=== PATIENT | female | born 1990 | race African-American/Black ===

== ENCOUNTER 2019-01-19 19:18 | Emergency (ER) | payer MEDICAID ==
[~2019-01-19] VITALS: Ht 149.9 cm; Wt 42.3 kg
[2019-01-19 20:42] VITALS: BP 94/60
== END 2019-01-19 21:45 | disposition home or self-care (01) ==
LOC: EMS 19:19
DX: S63.682A Other sprain of left thumb, initial encounter (principal); F41.9 Anxiety disorder, unspecified; F32.9 Major depressive disorder, single episode, unspecified; F12.90 Cannabis use, unspecified, uncomplicated; F17.210 Nicotine dependence, cigarettes, uncomplicated; X50.1XXA Overexertion from prolonged static or awkward postures, initial encounter; Y93.89 Activity, other specified; Y92.89 Other specified places as the place of occurrence of the external cause; Y99.8 Other external cause status